=== PATIENT | female | born 1945 | race Caucasian/White ===

== ENCOUNTER 2018-02-08 02:04 | Day surgery (SDC) | payer MEDICARE, OTHER ==
[~2018-02-08] VITALS: Ht 160 cm; Wt 90.3 kg
[~2018-02-08 02:04] MED LIST: ACET-1966 PO; ACET500T68 PO; ASPI1TAB23 PO; CEPH-13 PO; CHOL10005 PO; FLUO40CA76 PO; HYDR200T77 PO; KET10 PO; LOR5/325 PO; NAPR220C12 PO; NOR10 PO; TRAM-420 PO; TRAM100T8 PO
[2018-02-08] MEDS ORDERED: PROPOFOL EMUL(*) 10MG/ML 20 ML 20 ML ONE ×2 (07:06→09:13)
[2018-02-08 07:43] VITALS: BP 143/80
[2018-02-08] MEDS ORDERED: NORMOSOL R SOLN(*) 1000 ML BAG 1,000 ML IV PRN (08:50)
[2018-02-08] MEDS ORDERED: LIDOCAINE/SOD BICARB 8.4% SYR ID ONE (08:50)
[2018-02-08 09:26] VITALS: BP 106/71
--- NOTE | 2018-02-08 09:30 | Short(Outpt) Discharge Summary ---
Discharge Summary Reason for Hosp/Final Diag: (1) Positive colorectal cancer screening using Cologuard test Status: Chronic Hospital Course & Plan: Colonoscopy completed without problems; normal other than sigmoid diverticulosis. (2) Family history of colorectal cancer Departure Discharge to: Home, Self Care Discharge Instructions Home Meds Reported Medications Acetaminophen (TYLENOL) 325 Mg Tablet, 1-2 MG PO PRN, TAB 01/24/18 Naproxen Sodium (ALEVE) 220 Mg Capsule, 220 MG PO PRN, CAPSULE 01/24/18 Cholecalciferol (Vitamin D3) (VITAMIN D3) 1,000 Unit Tablet, 2000 UNIT PO QDAY, TAB 01/24/18 Fluoxetine Hcl (PROZAC) 40 Mg Capsule, 1 CAP PO QDAY, CAPSULE 12/27/17 Tramadol Hcl (TRAMADOL HCL) 50 Mg Tablet, 2 TAB PO BID for 1 Day, TAB 12/27/17 Hydroxychloroquine Sulfate (PLAQUENIL) 200 Mg Tablet, 1 TAB PO QDAY 02/28/15 Diet: Regular Activity: As Tolerated Special Instructions: Your colonoscopy was completed without any problems and your prep was excellent (Good Job!!). I didn't find any polyps, cancer or other concerning problems. I recommend that you undergo another colonoscopy in 5 years due to your family history. You do have diverticulosis in your sigmoid colon. This is a benign condition that occurs in almost half of people as we get older. It does not affect your cancer risk. I recommend that you eat lots of fruits and vegetables and you can even consider a daily fiber supplement such as Citrucel which can help prevent getting further diverticuli but also can improve constipation. FRANCA SINGER MD Feb 08, 2018 09:30
[2018-02-08 09:42] VITALS: BP 117/72
[2018-02-08 09:54] VITALS: BP 123/97
[2018-02-08 09:56] VITALS: BP 139/76
== END 2018-02-08 10:30 | disposition home or self-care (01) ==
LOC: OR 02:04
PROVIDERS: ATTEND Surgery
DX: Z12.11 Encounter for screening for malignant neoplasm of colon (principal); Z85.038 Personal history of other malignant neoplasm of large intestine; K57.30 Diverticulosis of large intestine without perforation or abscess without bleeding
CPT/HCPCS: 00812; G0121; J2704

== ENCOUNTER → 2018-10-26 | Outpatient (CLI) | payer MEDICARE, OTHER ==
--- NOTE | 2018-10-26 10:55 | RADIOLOGY IMAGING REPORT ---
FACILITY: [facility] PATIENT NAME: Melani Vega : 1945 MR: [id number] V: [id number] EXAM DATE: ORDERING PHYSICIAN: YOVANI PAZ TECHNOLOGIST: Location: [facility] Patient: Melani Vega : 1945 Visit/Account:[id number] Date of Sevice: 10/26/2018 DEXA Scan Clinical history: Postmenopausal, diagnosed with lupus 12 years ago. Comparison: DEXA scan from 03/30/2006. LUMBAR SPINE: The bone mineral density (BMD) measured from L1-L4 correlates with a Z-score of 1.5 and a T-score of 0.6 which is Normal as defined by the World Health Organization. The corresponding risk of fracture in the lumbar spine is Not increased compared with a young adult reference population. This value cruz s increase by 3.4 % since the prior study. More than 5% change is considered significant. HIP: Bone mineral density (BMD) measured in the LEFT total hip region correlates with a Z-score 0.2 and a T-score of by 0.8 which is normal as defined by the World Health Organization. The corresponding risk of fracture in the hip is 1-2 t imes increased compared to a young adult reference population. This value has decrease by 10.6 % sinc e the prior study. More than 5% change is considered significant. T score left femoral neck -1.6 Bone mineral density (BMD) measured in the Femoral Neck region measures 0.816 g/cm?. IMPRESSION: 1. Lumbar spine: Normal. There has been 3.4% increase in the bone mineral density since the previou s exam. 2. Left Total Hip: Normal. There has been 10.6% decrease in the bone mineral density since the prev ious exam. 3. Femoral Neck: Bone Mineral Density is 0.816 g/cm? The next DEXA scan of this patient should include the following sites: L1-L4 and the left hip. FRAX? WHO Fracture Risk Assessment Tool link: <http://www.shef.ac.uk/FRAX/tool.jsp?locationValue=9> PLEASE NOTE: 1) The World Health Organization defines low BMD as follows: T-score Normal > -1 Osteopenia < -1 and > -2.5 Osteoporosis < -2.5 without fractures Established osteoporosis < -2.5 with fractures 2) In general, you may wish to consider: Diagnosis Treatment Follow-up DEXA Normal BMD Prevention 2-3 years Osteopenia Prevention/therapy 1-2 years Osteoporosis Therapy Yearly 3) Fracture risk estimated from the T-score is more accurate for vertebral fractures (often spontane ous) than for hip fractures. Report Dictated By: Graciela Nelson MD at 10/26/2018 10:49 AM Report E-Signed By: Graciela Nelson MD at 10/26/2018 10:50 AM WSN:[email or web address]
== END ==
LOC: RAD 06:58
PROVIDERS: ATTEND Nurse Practitioner Family
DX: Z78.0 Asymptomatic menopausal state (principal); N18.3 Chronic kidney disease, stage 3 (moderate)
CPT/HCPCS: 77080

== ENCOUNTER → 2018-11-22 | Outpatient (CLI) | payer MEDICARE, OTHER ==
[~2018-11-22] MED LIST changes: +REGADENOSON 0.4 MG/5 ML SYR ONE
--- NOTE | 2018-11-22 14:25 | RADIOLOGY IMAGING REPORT ---
FACILITY: [facility] PATIENT NAME: Melani Vega : 1945 MR: [id number] V: [id number] EXAM DATE: ORDERING PHYSICIAN: YOVANI PAZ TECHNOLOGIST: [facility] Patient: Melani Vega : 1945 Visit/Account:[id number] Date of Sevice: 11/22/2018 EXAMINATION: Single isotope SPECT imaging with regadenoson infusion and gated SPECT imaging. DATE OF EXAMINATION: November 22, 2018. DATE OF INTERPRETATION: November 22, 2018. REQUESTING PHYSICIAN: YOVANI PAZ. INDICATION: The patient is a 73-year-old female evaluated for dyslipidemia, fatigue, lupus. PROCEDURE: After informed consent the patient received an intravenous injection of 12.2 mCi of Tc-99 m sestamibi followed at an appropriate time interval by rest imaging. The patient then subsequently received an intravenous infusion of 0.4 mg of regadenoson per protocol without complication. Resting heart rate was 68 bpm with a peak heart rate of 83 bpm. Blood pressure at rest was 134 / 74 and fol lowing infusion was 136 / 68. Baseline EKG demonstrates normal sinus rhythm. There were no EKG oliva ges of ischemia following infusion. Symptoms were nonspecific. The patient then received an intrave nous injection of 29.7 mCi of Tc-99m sestamibi followed by stress imaging. RAW DATA: Examination of the summed raw data revealed a good quality study. MYOCARDIAL PERFUSION: The tomographic images demonstrate a mild decrease in myocardial perfusion tra cer uptake in the basal to apical anterior wall seen on both stress and rest images that is slightly more prominent on stress as compared to rest imaging though is not visualized on stress prone imaging . GATED IMAGES: The gated images demonstrate an ejection fraction greater than 70% with no wall motion abnormality. IMPRESSION: 1. Normal myocardial perfusion scan with no evidence of ischemia. The predominantly fixed defect in the anterior wall that resolves with prone imaging and is likely breast attenuation artifact 2. Normal myocardial perfusion scan. 3. Normal LV systolic function; LVEF greater than 70%. 4. Based on the results of this exam, the patient appears to be at low risk for future cardiovascular events. Report Dictated By: Becky Avila at 11/22/2018 2:19 PM Report E-Signed By: Becky Avila at 11/22/2018 2:21 PM WSN:[id number]
== END ==
LOC: NUC 00:25
PROVIDERS: ATTEND Nurse Practitioner Family
DX: R22.40 Localized swelling, mass and lump, unspecified lower limb (principal); N18.3 Chronic kidney disease, stage 3 (moderate); Z82.49 Family history of ischemic heart disease and other diseases of the circulatory system; R53.83 Other fatigue; E78.2 Mixed hyperlipidemia; R61 Generalized hyperhidrosis; M32.10 Systemic lupus erythematosus, organ or system involvement unspecified
CPT/HCPCS: 78452; 93017; A9500; J2785